=== PATIENT | female | born 1980 | race Caucasian/White ===

== ENCOUNTER 2020-08-09 14:40 | Emergency (ER) | payer OTHER ==
[~2020-08-09] VITALS: Ht 172.7 cm; Wt 73.7 kg
[2020-08-09 14:53] VITALS: BP 120/83
[2020-08-09] MEDS ORDERED: hydrOXYzine HCL 25 MG TABLET PO ONE (15:15)
--- NOTE | 2020-08-09 15:24 | PHYS DOC ---
Past History Past Medical History: Anxiety, Migraines Past Surgical History: Tonsillectomy, Tubal ligation Alcohol Use: Sober General Adult EDM: Chief Complaint: ANXIETY/PANIC ATTACK HPI: HPI: 40-year-old female presents with anxiety and multiple other complaints. Patient states she is been having anxiety attacks a week. She states that she is also had episodes of vomiting most recently yesterday. She has not eaten all week. Today she had some numbness in her left arm and this was very concerning to her. It was a tingling sensation the way down to her fingers. She denies chest pain or shortness of breath. She has not had fever or chills. Review of Systems: Review of Systems: Constitutional: Denies fever or chills Eyes: Denies change in visual acuity HENT: Denies nasal congestion or sore throat Respiratory: Denies cough or shortness of breath Cardiovascular: Denies chest pain or edema GI: nausea, vomiting. Denies abdominal pain, bloody stools or diarrhea : Denies dysuria Musculoskeletal: Denies back pain or joint pain Integument: Denies rash Neurologic: Tingling of the left arm and hand. denies headache, focal weakness or sensory changes Endocrine: Denies polyuria or polydipsia Lymphatic: Denies swollen glands Psychiatric: anxiety Heart Score: Risk Factors: Risk Factors: DM, Current or recent (<one month) smoker, HTN, HLP, family history of CAD, obesity. Risk Scores: Score 0 - 3: 2.5% MACE over next 6 weeks - Discharge Home Score 4 - 6: 20.3% MACE over next 6 weeks - Admit for Clinical Observation Score 7 - 10: 72.7% MACE over next 6 weeks - Early Invasive Strategies Current Medications: Current Meds: Current Medications Medications (Trade) Dose Ordered Sig/Tami Start Time Stop Time Status Last Admin Dose Admin Diphenhydramine HCl (Benadryl) 50 mg 1X ONCE 08/09/20 15:15 08/09/20 15:16 UNV Hydroxyzine HCl (Atarax) 25 mg 1X ONCE 08/09/20 15:15 08/09/20 15:18 DC Ketorolac Tromethamine (Toradol 30mg Vial) 30 mg 1X ONCE 08/09/20 15:15 08/09/20 15:16 UNV Metoclopramide HCl (Reglan Vial) 10 mg 1X ONCE 08/09/20 15:15 08/09/20 15:16 UNV Sodium Chloride 1,000 ml @ 1,000 mls/hr 1X ONCE 08/09/20 15:15 08/09/20 16:14 UNV Allergies: Allergies: Allergies Coded Allergies Type Severity Reaction Last Updated Verified No Known Drug Allergies 08/09/20 No Physical Exam: PE: Constitutional: Well developed, well nourished, no acute distress, non-toxic a ppearance. [] HENT: Normocephalic, atraumatic, bilateral external ears normal, oropharynx moist, no oral exudates, nose normal. [] Eyes: PERRLA, EOMI, conjunctiva normal, no discharge. [] Neck: Normal range of motion, no tenderness, supple, no stridor. [] Cardiovascular:Heart rate regular rhythm, no murmur [] Lungs & Thorax: Bilateral breath sounds clear to auscultation [] Abdomen: Bowel sounds normal, soft, no tenderness, no masses, no pulsatile masses. [] Skin: Warm, dry, no erythema, no rash. [] Back: No tenderness, no CVA tenderness. [] Extremities: No tenderness, no cyanosis, no clubbing, ROM intact, no edema. [] Neurologic: Alert and oriented X 3, normal motor function, normal sensory function, no focal deficits noted. [] Psychologic: Affect normal, judgement normal, mood normal. [] Current Patient Data: Vital Signs: Vital Signs Date Time Temp Pulse Resp B/P (MAP) Pulse Ox O2 Delivery O2 Flow Rate FiO2 08/09/20 14:53 98.9 99 34 120/83 (95) 99 Room Air EKG: EKG: Sinus rhythm, rate 93, normal axis, no ST elevation or depression. [] Radiology/Procedures: Radiology/Procedures: [] Impressions: EXAM: Chest, single view. HISTORY: Chest pain. COMPARISON: None. FINDINGS: A frontal view of the chest is obtained. There is no infiltrate, pleural effusion or pneumothorax. The heart is normal in size. IMPRESSION: No acute pulmonary finding. Electronically signed by: Ingrid Kumari MD (08/09/2020 3:44 PM) [facility] DICTATED AND SIGNED BY: INGRID KUMARI MD DATE: 08/09/20 8034 CC: RAY CHICAS DO; PCP,NO ~ Course & Med Decision Making: Course & Med Decision Making Pertinent Labs and Imaging studies reviewed. (See chart for details) The patient's CBC is normal. Her CMP has an elevated anion gap of 21 and a CO2 of 16. Her chest x-ray is negative for acute findings. Her blood sugar is 56. I am not really sure what is going on to cause these things. We did give the patient an amp of dextrose. She was able to drink some apple juice in the ED without vomiting. I suspect her lack of eating and vomiting is the primary cause of her feeling ill. I will discharge her with Zofran ODT for home. She is stable for discharge at this time. [] Dragon Disclaimer: Branden Disclaimer: This electronic medical record was generated, in whole or in part, using a voice recognition dictation system. Departure Departure: Impression: Primary Impression: Anxiety attack Additional Impressions: Vomiting Headache Disposition: 01 DC HOME SELF CARE/HOMELESS Condition: STABLE Referrals: PCP,NO (PCP) Patient Instructions: Anxiety and Panic Attacks, Warm-ue-Cvkn, Nausea and Vomiting, [id number] Scripts Ondansetron (ONDANSETRON ODT) 4 Mg Tab.rapdis 1 TAB PO PRN Q6-8HRS PRN for VOMITING, #16 TAB Prov: RAY CHICAS DO 08/09/20 RAY CHICAS DO Aug 09, 2020 15:23
[2020-08-09 15:39] LABS: BASO # 0.1 x10^3/uL (0.0-0.2); BASO % 1 % (0-3); EOS # 0.1 x10^3/uL (0.0-0.7); EOS % 2 % (0-3); HEMATOCRIT 41.8 % (36.0-47.0); HEMOGLOBIN 13.6 g/dL (12.0-15.5); LYMPH # 2.1 x10^3/uL (1.0-4.8); LYMPH % 26 % (24-48); MEAN CORPUSCULAR HEMOGLOBIN 28 pg (25-35); MEAN CORPUSCULAR HGB CONC 33 g/dL (31-37); MEAN CORPUSCULAR VOLUME 86 fL (79-100); MONO # 0.5 x10^3/uL (0.0-1.1); MONO % 6 % (0-9); NEUT # 5.3 x10^3uL (1.8-7.7); NEUT % 65 % (31-73); PLATELET COUNT 288 x10^3/uL (140-400); RED BLOOD COUNT 4.87 x10^6/uL (3.50-5.40); RED CELL DISTRIBUTION WIDTH 13.1 % (11.5-14.5); WHITE BLOOD COUNT 8.2 x10^3/uL (4.0-11.0)
--- NOTE | 2020-08-09 15:47 | RAD ---
EXAM: Chest, single view. HISTORY: Chest pain. COMPARISON: None. FINDINGS: A frontal view of the chest is obtained. There is no infiltrate, pleural effusion or pneumothorax. The heart is normal in size. IMPRESSION: No acute pulmonary finding. Electronically signed by: Ingrid Kumari MD (08/09/2020 3:44 PM) [facility]
[2020-08-09 15:51] LABS: CALCIUM 9.3 mg/dL (8.5-10.1); CREATININE 1.1 mg/dL (0.6-1.0); GFR 55.6; POTASSIUM 3.9 mmol/L (3.5-5.1)
[2020-08-09 15:58] LABS: ALBUMIN 4.3 g/dL (3.4-5.0); ALBUMIN/GLOBULIN RATIO 1.2 (1.0-1.7); TOTAL BILIRUBIN 0.5 mg/dL (0.2-1.0); TOTAL PROTEIN 7.8 g/dL (6.4-8.2)
[2020-08-09] MEDS: IV NORMAL SALINE 1,000ML 1,000 ML IV ONE (16:03)
[2020-08-09] MEDS: diphenhydrAMINE 50 MG/ML VIAL IVP ONE (16:03)
[2020-08-09] MEDS: KETOROLAC 30 MG/ML VIAL. IVP ONE (16:04)
[2020-08-09] MEDS: METOCLOPRAMIDE HCL 10 MG/2 ML VIAL. IVP ONE (16:04)
--- NOTE | 2020-08-09 17:32 | EKG ---
[facility] ED [facility] [place] [id number] Test Date: 2020-08-09 Test Time: 14:59:54 Pat Name: JEFFERSON DELATORRE Department: Room: Gender: F [employer] Project [employer]: : 1980 Requested By: RAY CHICAS Order Number: [id number] Reading MD: Roddy Young MD Measurements Intervals [place] Rate: 93 P: 8 MN: 128 QRS: 40 QRSD: 80 T: 6 QT: 364 QTc: 455 Interpretive Statements SINUS ARRHYTHMIA Electronically Signed On 08-10-2020 14:10:45 CDT by Roddy Young MD
[2020-08-09 17:39] LABS: BILIRUBIN,URINE SMALL (NEG); CLARITY,URINE CLEAR; COLOR,URINE YELLOW; GLUCOSE,URINE NEG (NEG)
[2020-08-09 17:40] LABS: BACTERIA,URINE 0 /HPF (0-FEW); NITRITE,URINE NEG (NEG); UROBILINOGEN,URINE 0.2 mg/dL (0.2 mg/dL); WBC,URINE RARE /HPF (0-4)
[2020-08-09] MEDS: DEXTROSE 50% 25 GM / 50ML DISP.SYRIN. IV ONE (17:42)
[2020-08-09] MEDS ORDERED: ONDA4TAB12 PO (17:50)
== END 2020-08-09 18:00 | disposition home or self-care (01) ==
LOC: ER 14:40
DX: F41.9 Anxiety disorder, unspecified (principal); R11.2 Nausea with vomiting, unspecified; G43.909 Migraine, unspecified, not intractable, without status migrainosus; R07.89 Other chest pain; R20.0 Anesthesia of skin
CPT/HCPCS: 36415; 71045; 80053; 81001; 84484; 85025; 93005; 96361; 96374; 96375; 99285; J1200; J1885; J2765; J7030

== ENCOUNTER 2021-08-31 09:00 | Emergency (ER) | payer OTHER ==
[~2021-08-31] VITALS: Ht 172.7 cm; Wt 73.7 kg
[2021-08-31 09:00] VITALS: BP 115/73
[~2021-08-31 09:00] MED LIST: ONDA4TAB12 PO
--- NOTE | 2021-08-31 09:53 | RAD ---
XR FOOT_LEFT 3 VIEWS, XR EXAM OF ANKLE_LEFT 3V History: Swelling. Left foot and ankle pain. Comparison: None. Technique: 3 views of the left foot. 3 views of the left ankle. Findings: Osseous mineralization is normal. No acute fracture or dislocaton. The ankle mortise and talar dome a re intact. Small plantar calcaneal enthesophyte. No significant degenerative changes. Soft tissues ar e unremarkable. Impression: 1. No acute osseous abnormality of the left foot and ankle. Electronically signed by: Andrae Dimas MD (08/31/2021 9:50 AM) [id number]
--- NOTE | 2021-08-31 10:07 | PHYS DOC ---
Past History Past Medical History: Anxiety, Migraines Past Surgical History: Tonsillectomy, Tubal ligation Alcohol Use: Sober General Adult EDM: Chief Complaint: ANKLE PROBLEM HPI: HPI: Patient is a 41-year-old female who presents to the emergency department for left ankle and foot pain. Patient rates pain 6 out of 10. She states it is worse with bearing weight. She reports that pain started after she fell down 4 stairs today. She denies hitting her head or loss of consciousness. No treatment prior to arrival. Patient denies any decreased range of motion, wounds, decreased sensation in her extremity. Review of Systems: Review of Systems: Musculoskeletal: See HPI Integument: See HPI Neurologic: See HPI Allergies: Allergies: Allergies Coded Allergies Type Severity Reaction Last Updated Verified No Known Drug Allergies 08/09/20 No Physical Exam: PE: Constitutional: Well developed, well nourished, no acute distress, non-toxic appearance. [] HENT: Normocephalic, atraumatic, bilateral external ears normal, oropharynx moist, no oral exudates, nose normal. [] Eyes: PERRL, EOMI, conjunctiva normal, no discharge. [] Neck: Normal range of motion, no tenderness, supple, no stridor. [] Cardiovascular:Heart rate regular rhythm, no murmur [] Lungs & Thorax: Bilateral breath sounds clear to auscultation [] Abdomen: Bowel sounds normal, soft, no tenderness, no masses, no pulsatile masses. [] Skin: Warm, dry, no erythema, no rash. [] Back: No tenderness, normal range of motion Extremities: No tenderness, no cyanosis, no clubbing, ROM intact, no edema. Left ankle: Swelling and pain noted to lateral aspect and top of left foot and ankle, range of motion intact-limited flexion of ankle due to pain and swelling, neuro intact, no open wounds or obvious deformities Neurologic: Alert and oriented X 3, normal motor function, normal sensory function, no focal deficits noted. [] Psychologic: Affect normal, judgement normal, mood normal. [] EKG: EKG: [] Radiology/Procedures: Radiology/Procedures: [] Heart Score: C/O Chest Pain: N/A Risk Factors: Risk Factors: DM, Current or recent (<one month) smoker, HTN, HLP, family history of CAD, obesity. Risk Scores: Score 0 - 3: 2.5% MACE over next 6 weeks - Discharge Home Score 4 - 6: 20.3% MACE over next 6 weeks - Admit for Clinical Observation Score 7 - 10: 72.7% MACE over next 6 weeks - Early Invasive Strategies Course & Med Decision Making: Course & Med Decision Making Pertinent Labs and Imaging studies reviewed. (See chart for details) Patient presents to the emergency department today for left ankle and foot pain after she fell down 4 stairs. An x-ray was performed that was negative for any acute findings. Patient's ankle placed in Gonzalo wrap and she was given crutches and crutch training. Patient educated on rice protocol. Advised to take Tylenol and/or ibuprofen for pain. Advised to follow-up with primary care provider. I discussed with patient all findings and diagnostic testing as well as the need to follow-up with PCP for further evaluation and treatment or return to the ER if any new or worsening symptoms. Strict return precautions were also discussed at length. Patient voiced understanding and agreement with the plan. Patient is hemodynamically stable at the time of disposition. Dragon Disclaimer: Branden Disclaimer: This electronic medical record was generated, in whole or in part, using a voice recognition dictation system. Departure Departure: Impression: Primary Impression: Ankle sprain Qualified Codes: S93.402A - Sprain of unspecified ligament of left ankle, initial encounter Disposition: HOME / SELF CARE / HOMELESS Condition: GOOD Referrals: MAYUR DAWN MD (PCP) Patient Instructions: BECKA - Routine Care for Injuries Additional Instructions: You were seen in the emergency department today for a musculoskeletal problem that will likely improve over time. Your symptoms may be improved by something called the rice protocol. This is rest, ice, compression, elevation. Please follow-up when doing intense exercises that may make the pain worse. Sometimes gentle stretching can provide relief, but be careful to injury. It is important to perform gentle range of motion exercises to prevent stiff joints and chronic pain. Use ice packs over the affected areas to help decrease your pain. For the first 24 hours you can apply ice 20 minutes on 20 minutes off for 4 times per day. Sometimes compression such as the use of an Gnozalo wrap can help with the swelling. You may also elevate the affected area to help with the swelling. You can also take Tylenol and/or ibuprofen for your pain. Use the crutches as needed for comfort. Follow-up with your primary care provider tomorrow regarding your ER visit. Return to the emergency department if you develop worsening of your pain, inability to bear weight or ambulate, decreased range of motion or decreased sensation in your extremity. SHANE REYES APRN Aug 31, 2021 10:07
== END 2021-08-31 10:18 | disposition home or self-care (01) ==
LOC: ER 09:00
DX: S93.402A Sprain of unspecified ligament of left ankle, initial encounter (principal); Z98.51 Tubal ligation status; W10.8XXA Fall (on) (from) other stairs and steps, initial encounter; Y93.89 Activity, other specified; Y92.89 Other specified places as the place of occurrence of the external cause; Y99.8 Other external cause status
CPT/HCPCS: 73610; 73630; 99284-25